=== PATIENT | male | born 1970 | race Caucasian/White ===

== ENCOUNTER 2022-09-05 06:02 | Emergency (ER) | payer BC ==
[~2022-09-05] VITALS: Ht 182.9 cm; Wt 88.5 kg
[2022-09-05 06:37] LABS: BASOPHILS PERCENT AUTO 1 % (0-2); EOSINOPHILS ABSOLUTE AUTO 0.28 K/mm3 (0.00-0.68); EOSINOPHILS PERCENT AUTO 2 % (0-6); Hematocrit 45.1 % (37.0-53.0); Hemoglobin 15.6 g/dL (13.5-17.5); IMMATURE GRAN ABSOLUTE AUTO 0.04 K/mm3 (0.00-0.10); IMMATURE GRAN PERCENT AUTO 0 % (0-1); LYMPHOCYTES ABSOLUTE AUTO 2.33 K/mm3 (0.84-5.20); LYMPHOCYTES PERCENT AUTO 19 % (21-46); MONOCYTES ABSOLUTE AUTO 0.68 K/mm3 (0.16-1.47); MONOCYTES PERCENT AUTO 6 % (4-13); Mean Corpuscular HGB 31.8 pg (26.0-34.0); Mean Corpuscular HGB Conc 34.6 g/dL (31.5-36.5); Mean Corpuscular Volume 92 fL (80-100); Mean Platelet Volume 10.5 fL (9.1-12.4); NEUTROPHILS ABSOLUTE AUTO 8.94 K/mm3 (1.96-9.15); NEUTROPHILS PERCENT AUTO 72 % (41-73); Platelet Count 258 K/mm3 (150-400); RDW Coefficient Variation 12.5 % (11.7-14.2); RDW Standard Deviation 42.3 fL (35.1-46.3); Red Blood Cell Count 4.91 M/mm3 (4.30-5.90); White Blood Cell Count 12.37 K/mm3 (4.00-11.30)
[2022-09-05 06:47] LABS: Albumin, Blood 3.8 g/dL (3.4-5.0); Bilirubin, Total 0.4 mg/dL (0.1-1.0); Bun/Creatinine Ratio 16.9 (12.0-20.0); Calcium, Blood 9.2 mg/dL (8.5-10.1); Creatinine, Blood 0.89 mg/dL (0.60-1.20); Globulin, Blood 3.7 g/dL (2.2-4.0); Total Protein, Blood 7.5 g/dL (6.4-8.2)
[2022-09-05 08:30] VITALS: BP 133/114
[2022-09-05] MEDS ORDERED: COMPAZINE10 MG PO (08:59)
== END 2022-09-05 09:06 | disposition home or self-care (01) ==
LOC: ER 06:02
PROVIDERS: Emergency Medicine
DX: A08.4 Viral intestinal infection, unspecified (principal); K22.6 Gastro-esophageal laceration-hemorrhage syndrome; E87.6 Hypokalemia; I10 Essential (primary) hypertension
CPT/HCPCS: 74177; 80053; 85025; 93005; 93010; A9270; C9113; J0780; J2405; J7030; Q9967

== ENCOUNTER → 2024-11-07 | Outpatient (CLI) | payer MEDICARE, OTHER ==
[~2024-11-07] MED LIST: COMPAZINE10 MG PO
== END ==
LOC: LAB SHORT 14:39 → LAB 14:39
PROVIDERS: Family Medicine
DX: T56.91XA Toxic effect of unspecified metal, accidental (unintentional), initial encounter (principal)
CPT/HCPCS: 82300; 82570; 83825